=== PATIENT | male | born 1955 | race Caucasian/White ===

== ENCOUNTER 2019-10-24 17:12 | Inpatient (IN) | payer OTHER ==
[~2019-10-24] VITALS: Ht 182.9 cm; Wt 140.6 kg
[~2019-10-24 17:12] MED LIST: ACAR50TA PO; ASPI325T4 PO; ASPI81CH43 PO; ATOR20TA PO; CHRO200C4 PO; COEN100C11 PO; FLUO-125 PO; FURO20TA3 PO; GLIP10TA9 PO; LISI10TA6 PO; METF500S PO; OMEG1CAP68 PO; POTA10TA51 PO; POTA1TAB61 PO; [UNRECOGNIZED DRUG - CODE] PO
[2019-10-24] MEDS ORDERED: ACETAMINOPHEN 325 MG TAB PO ONE (17:45)
[2019-10-24 18:09] LABS: Basophils # (auto) 0.1 10 ^3/uL (0-0.2); Basophils % (auto) 0.6 % (0.0-2.0); Eosinophils # (auto) 0.1 10 ^3/uL (0-0.8); Eosinophils % (auto) 0.5 % (0.0-7.0); Hematocrit 40.9 % (41.0-53.0); Hemoglobin 13.5 g/dL (13.5-17.5); Lymphocytes # (auto) 0.7 10 ^3/uL (0.4-5.4); Lymphocytes % (auto) 4.5 % (10.0-50.0); Mean Corpuscular Hemoglobin 29.4 pg (28.0-32.0); Mean Corpuscular Hgb Conc. 33.1 g/dL (32.0-36.0); Mean Corpuscular Volume 88.9 fL (80.0-100.0); Monocytes # (auto) 1.3 10 ^3/uL (0-1.3); Monocytes % (auto) 9.3 % (0.0-12.0); Neutrophils # (auto) 12.3 10 ^3/uL (1.6-8.6); Neutrophils % (auto) 85.1 % (37.0-80.0); Nucleated Red Blood Cells % 0.1 %; Platelet Count (auto) 213 10^3/uL (140-450); Red Cell Distribution Width 14.4 % (11.8-14.3); White Blood Cell 14.4 10^3/uL (4.4-10.8)
[2019-10-24 18:28] LABS: Albumin 3.6 g/dL (3.4-5.0); Calcium 8.8 mg/dL (8.5-10.1); Magnesium 1.9 mg/dL (1.6-2.6); Potassium 4.5 mmol/L (3.5-5.1)
[2019-10-24 18:36] LABS: BUN/Creatinine Ratio 19.6; Bilirubin, Total 0.7 mg/dL (0.2-1.0); CRP High Sensitivity 2.22 mg/dL (< 0.3)
[2019-10-24 20:00] VITALS: BP 131/73
[2019-10-24] MEDS ORDERED: AZITHROMYCIN 500MG/ 250ML 250 ML IV ONE (20:15)
[2019-10-24] MEDS ORDERED: SODIUM CHLORIDE 0.9% 1,000 ML IV SCH (22:25)
[2019-10-24] MEDS ORDERED: ONDANSETRON HCL 4 MG/2 ML VIAL IV PRN (22:30)
[2019-10-24] MEDS ORDERED: MORPHINE SULF INJ 2 MG/ML SYRINGE 1ML IV PRN ×2 (22:30)
[2019-10-24] MEDS ORDERED: ACETAMINOPHEN 500 MG TAB PO PRN (22:30)
[2019-10-24] MEDS ORDERED: DEXTROSE (50%) 50ML SYRG IV PRN (22:30)
[2019-10-24] MEDS ORDERED: NITROGLYCERIN 0.4 MG SL TAB SL PRN (22:30)
[2019-10-24] MEDS ORDERED: ACETAMINOPHEN 325 MG TAB PO PRN (22:30)
[2019-10-24] MEDS ORDERED: DOCUSATE SOD 100 MG CAP PO PRN (22:30)
[2019-10-24] MEDS ORDERED: HYDROcodone-ACET 5/325MG TAB PO PRN (22:30)
[2019-10-25] MEDS ORDERED: InsuLIN REG 1unit/0.01ml Soln (100units/ml) SC SCH
[2019-10-25] MEDS ORDERED: ACCU-CHEK COMFORT CURVE STRIP VI SCH
[2019-10-25] MEDS ORDERED: ALBUTEROL SULF HFA 90MCG INH 200DOSE IN SCH ×2 (06:00)
[2019-10-25] MEDS ORDERED: PIPERACILLIN-TAZOB 3.375GM 100 ML IV SCH ×2 (06:58→06:59)
[2019-10-25] MEDS ORDERED: ZINC SULFATE 220mg CAP or TAB PO SCH (10:00)
[2019-10-25] MEDS ORDERED: POTASSIUM CHL 10 Meq TABLET PO SCH (10:00)
[2019-10-25] MEDS ORDERED: DOXYCYCLINE 100 MG TAB/CAP PO SCH (10:00)
[2019-10-25] MEDS ORDERED: SODIUM CHLORIDE 0.9% 1,000 ML IV SCH (10:00)
[2019-10-25] MEDS ORDERED: FLUoxetine HCL 20 MG CAP PO SCH (10:00)
[2019-10-25] MEDS ORDERED: LISINOPRIL 10 MG TAB PO SCH (10:00)
[2019-10-25] MEDS ORDERED: ENOXAPARIN SOD 40 MG/0.4 ML SYRINGE SC SCH (10:00)
[2019-10-25] MEDS ORDERED: FUROSEMIDE 20 MG TAB PO SCH (10:00)
[2019-10-25] MEDS ORDERED: ASPirin 81 mg TAB PO SCH (10:00)
[2019-10-25] MEDS ORDERED: CHOLECALCIFEROL (VITD3) 1,000IU=25mCg TAB PO SCH (10:00)
[2019-10-25] MEDS ORDERED: ATORVASTATIN 20 MG TAB PO SCH (10:00)
[2019-10-25] MEDS ORDERED: ASCORBIC ACID 1,000 MG TAB PO SCH (10:00)
== END 2019-10-24 22:37 | disposition left against medical advice (07) | DRG 194 ==
LOC: ER 17:12 → TELE 17:13
PROVIDERS: ADMIT Hospitalist; ATTEND Hospitalist
DX: J18.9 Pneumonia, unspecified organism (principal); E87.1 Hypo-osmolality and hyponatremia; Z68.41 Body mass index [BMI] 40.0-44.9, adult; I11.0 Hypertensive heart disease with heart failure; I50.9 Heart failure, unspecified; E78.5 Hyperlipidemia, unspecified; L97.529 Non-pressure chronic ulcer of other part of left foot with unspecified severity; Z20.828 Contact with and (suspected) exposure to other viral communicable diseases; E66.01 Morbid (severe) obesity due to excess calories; Z53.29 Procedure and treatment not carried out because of patient's decision for other reasons; E11.65 Type 2 diabetes mellitus with hyperglycemia; F32.9 Major depressive disorder, single episode, unspecified; G89.29 Other chronic pain; Z88.1 Allergy status to other antibiotic agents; M79.672 Pain in left foot
CPT/HCPCS: 36415; 71045; 80053; 83605; 83615; 83735; 83880; 84443; 85025; 85379; 86141; 87040; 87070; 87077; 87186; 87205; 87804; 87880; 93005; G0378